=== PATIENT | male | born 1960 | race Two or more races ===

== ENCOUNTER 2025-02-04 10:04 | Emergency (ER) | payer OTHER ==
[~2025-02-04] VITALS: Ht 175.3 cm; Wt 77.1 kg
[2025-02-04 12:48] LABS: BASO % 0.6 % (0.1-1.2); EOS # 0.11 (0.04-0.54); EOS % 1.5 % (0.7-7.0); HEMOGLOBIN 14.1 g/dL (13.7-17.5); LYMPH # 1.71 (1.18-3.74); LYMPH % 23.5 % (19.3-53.1); MEAN CORPUSCULAR HEMOGLOBIN 26.7 pg (25.6-32.2); MONO # 0.62 (0.24-0.82); MONO % 8.5 % (4.7-12.5); NEUT # 4.77 (1.56-6.13); NEUT % 65.6 % (34.0-71.1); PLATELET COUNT 369 K/uL (163-369); RED BLOOD COUNT 5.28 M/uL (4.63-6.08)
[2025-02-04 13:06] LABS: INR 1.05; PARTIAL THROMBOPLASTIN TIME 30.2 SECONDS (22.0-34.0); PROTHROMBIN TIME 11.4 SECONDS (9.0-11.5)
[2025-02-04 13:13] LABS: BILIRUBIN TOTAL 0.46 mg/dL (0.3-1.2); CALCIUM 9.2 mg/dL (8.5-10.1); CREATININE SERUM 1.03 mg/dL (0.70-1.30); GFR 72.94; POTASSIUM 4.21 mEq/L (3.5-5.1)
[2025-02-04 14:43] LABS: PH,URINE 5.5 (5.0-8.0); URINE APPEARANCE Clear; URINE BILIRRUBIN Negative (NEGATIVE); URINE BLOOD Large; URINE COLOR Yellow; URINE GLUCOSE Negative (NEGATIVE); URINE KETONE Negative (NEGATIVE); URINE LEUKOCYTE Trace; URINE NITRATE Negative; URINE PROTEIN Negative (NEGATIVE); URINE UROBILINOGEN 0.2 E.U./dl
[2025-02-04 14:44] LABS: URINE EPITHELIAL CELLS 1.5 uL (0.0-38.8); URINE WBC 3.6 uL (0.0-23.2)
[2025-02-04 15:05] LABS: URINE BACTERIA 3.5 uL (0.0-1933)
[2025-02-04] MEDS ORDERED: PEPCID AC20 MG PO (15:15)
[2025-02-04] MEDS ORDERED: BACTRIM DS TAB1 EACH PO (15:15)
[2025-02-04] MEDS ORDERED: LEVSIN/SL0.125 MG SL (15:15)
[2025-02-04] MEDS ORDERED: PROBIOTIC1 EAC2 PO (15:15)
== END 2025-02-04 15:46 | disposition home or self-care (01) ==
LOC: ER 11:41
PROVIDERS: General Practice
DX: R10.31 Right lower quadrant pain (principal)